=== PATIENT | female | born 1980 | race Caucasian/White ===

== ENCOUNTER 2020-08-14 11:06 | Emergency (ER) | payer OTHER, SELFPAY ==
[2020-08-14 11:55] VITALS: BP 116/77; PULSE 100; RESP 16; TEMP 36.9; O2SAT 98
--- NOTE | 2020-08-14 11:59 | ED.URI ---
HPI - URI/Sore Throat General Chief Complaint: Upper Respiratory Infection Stated Complaint: Sore throat Time Seen by Provider: 08/14/20 11:59 Source: patient and RN notes reviewed History of Present Illness HPI Narrative: Patient is a 40-year-old female who presents the urgent care with complaints of a sore throat. Patient states that she was recently on Augmentin for positive strep approximately 2 weeks ago. Patient states her symptoms started again on and she has been using Tylenol. Patient denies of any nausea or vomiting. No other acute complaints. No acute distress noted. Patient aware of the plan of care. Some parts of this dictation were generated by voice recognition software and may contain typographical and/or grammatical inaccuracies. Related Data Home Medications Medication Instructions Recorded Confirmed atorvastatin 10/28/19 fenofibrate mg 10/28/19 fluconazole 10/28/19 insulin glargine [Basaglar KwikPen unit SUBCUT 10/28/19 U-100 Insulin] metformin mg 10/28/19 quetiapine 10/28/19 citalopram mg 08/14/20 lamotrigine 08/14/20 lamotrigine 08/14/20 Allergies Allergy/AdvReac Type Severity Reaction Status Date / Time ibuprofen Allergy Unknown Nausea Verified 08/14/20 12:11 ketorolac Allergy Unknown Other Verified 08/14/20 12:11 PNEUMONIA VACCINE Allergy Unknown HIVES Uncoded 03/26/16 19:54 Review of Systems Review of Systems: Narrative: CONSTITUTIONAL: Denies fever, chills, or sweats. EYES: Denies visual changes, redness, or discharge. ENT: Reports of sore throat CARDIOVASCULAR: Denies chest pain, palpitations, or edema. RESPIRATORY: Denies cough or dyspnea. GASTROINTESTINAL: Denies abdominal pain, nausea, vomiting, or diarrhea. GENITOURINARY: Denies dysuria or hematuria. SKIN: Denies rash or itching. MUSCULOSKELETAL: Denies back pain, joint pain, or myalgia. NEUROLOGIC: Denies headache, numbness, or weakness. All other systems reviewed are negative, except as documented in HPI. PMFSH Comments At the time of my signature, I reviewed and agree with the nursing past medical, surgical, social, and family history. There is no relevant family history pertinent to the patient complaint. Exam Narrative: Exam Narrative: GENERAL: This is a well-nourished, well-developed patient, in no apparent distress. HEAD: normocephalic, atraumatic. EYES: PERRL. Sclera clear/white. Vision is grossly intact. EARS: External ears normal, auditory canals clear and without drainage, TMs normal without perforation. Hearing grossly intact. NOSE: External nose normal with no obvious nasal discharge, nares without redness, no rhinorrhea. THROAT: Mucous membranes moist, mild erythema noted to posterior pharynx with exudate noted to the left. Moderate postnasal drainage. NECK: Neck supple CARDIOVASCULAR: Regular rate and rhythm without murmurs, gallops, or rubs. RESPIRATORY: Clear to auscultation. Breath sounds equal bilaterally. No wheezes, rales, or rhonchi. SKIN: warm, intact with no suspicious lesions or rash, good texture and turgor. NEURO: awake, alert, and oriented to person, place and time. There were no obvious focal neurologic abnormalities. EXTREMITIES: No clubbing, cyanosis, or edema. Course Vital Signs Vital signs: Vital Signs Temperature 98.4 F 08/14/20 11:55 Pulse Rate 100 08/14/20 11:55 Respiratory Rate 16 08/14/20 11:55 Blood Pressure 116/77 08/14/20 11:55 Pulse Oximetry 98 08/14/20 11:55 Temperature 98.4 F 08/14/20 11:55 Pulse Rate 100 08/14/20 11:55 Respiratory Rate 16 08/14/20 11:55 Blood Pressure 116/77 08/14/20 11:55 Pulse Oximetry 98 08/14/20 11:55 Reviewed MDM - URI/Sore Throat MDM Narrative Medical decision making narrative: Reviewed lab results with the patient. Aware that strep swab was negative. Educated mother on culture we will call within 72 hours if culture is positive and antibiotics are necessary. Advised mother not to share a
== END 2020-08-14 12:28 | disposition home or self-care (01) ==
PROVIDERS: Emergency Provider Nurse Practitioner Family; PCP Physician Assistant
DX: J02.9 Acute pharyngitis, unspecified (principal); E78.00 Pure hypercholesterolemia, unspecified; I10 Essential (primary) hypertension; E11.9 Type 2 diabetes mellitus without complications
CPT/HCPCS: 87081; 87880; 99213; G0463

== ENCOUNTER 2022-01-29 15:50 | Emergency (ER) | payer OTHER, SELFPAY ==
--- NOTE | 2022-01-29 15:53 | ED.URI ---
HPI - URI/Sore Throat General Chief Complaint: Upper Respiratory Infection Stated Complaint: Sinus headache Time Seen by Provider: 01/29/22 16:20 Source: patient and RN notes reviewed Mode of arrival: ambulatory Limitations: no limitations History of Present Illness HPI Narrative: 41-year-old female presents with concern for 6-day history of nasal congestion, rhinorrhea, head congestion. Reports symptoms worsened yesterday. Reports mild symptoms for 1 week. She denies any [id number] dimension. She denies cough, fever, body aches, chills, sweats MD elicited complaint: rhinorrhea and nasal congestion Related Data Home Medications Medication Instructions Recorded Confirmed quetiapine 50 mg PO DAILY 10/28/19 01/29/22 citalopram 40 mg PO DAILY 08/14/20 01/29/22 lamotrigine 25 mg PO DAILY 08/14/20 01/29/22 lamotrigine 100 mg PO DAILY 08/14/20 01/29/22 Allergies Allergy/AdvReac Type Severity Reaction Status Date / Time ibuprofen Allergy Unknown Nausea Verified 01/29/22 16:28 ketorolac Allergy Unknown Other Verified 01/29/22 16:28 PNEUMONIA VACCINE Allergy Unknown HIVES Uncoded 01/29/22 16:28 Review of Systems Review of Systems: CONSTITUTIONAL: Denies malaise, chills, sweats, or fever. EYES: Denies visual changes, redness, or discharge. ENT: Reports rhinorrhea, congestion, sinus pain. Denies otalgia and sore throat. CARDIOVASCULAR: Denies chest pain, palpitations, or edema. RESPIRATORY: Denies cough. Denies dyspnea. GASTROINTESTINAL: Denies abdominal pain, nausea, vomiting, diarrhea SKIN: Denies rash or itching. MUSCULOSKELETAL: Denies myalgia. NEUROLOGIC: Reports headache. All systems reviewed & are unremarkable except as noted in HPI and below PMFSH Comments At time of signature, agree with nursing past medical, surgical, social and family history. There is no relevant family history pertinent to the presenting complaint Exam Narrative: GENERAL: Well-appearing, well-nourished, and in no acute distress. HEAD: Normocephalic EYES: PERRLA, conjunctivae clear ENT: Nares clear, turbinates edematous and erythematous, clear discharge. Mucous membranes moist. TM pearly cardenas with dull light reflex bilaterally; no tragal tenderness. Oropharynx not erythematous without lesions. Tonsils not enlarged and without exudate, no drooling, no hoarseness, no trismus, uvula midline. NECK: Supple. No lymphadenopathy CHEST: Clear to auscultation, breath sounds equal. No wheezing, rhonchi, rales, or stridor. No respiratory distress, speaks in full sentences. HEART: Regular rate and rhythm. No murmur heard. SKIN: Warm, dry, no rash. NEURO: Alert and oriented x3. PSYCH: Normal mood and affect Course Course Emergency Course: Patient is aware of diagnosis, understands and agrees to treatment plan. Anticipatory guidance given. Patient agrees to follow-up as directed and is aware of reasons to seek care at the emergency department. Portions of this record may have been created with voice recognition software Level of Care: Express Care Visit Vital Signs Vital signs: Vital Signs Temperature 97.5 F L 01/29/22 16:14 Pulse Rate 94 01/29/22 16:14 Respiratory Rate 16 01/29/22 16:14 Blood Pressure 119/83 01/29/22 16:14 Pulse Oximetry 98 01/29/22 16:14 Temperature 97.5 F L 01/29/22 16:14 Pulse Rate 94 01/29/22 16:14 Respiratory Rate 16 01/29/22 16:14 Blood Pressure 119/83 01/29/22 16:14 Pulse Oximetry 98 01/29/22 16:14 Reviewed. MDM - URI/Sore Throat MDM Narrative Medical decision making narrative: Differential diagnosis considered: Velez virus, strep pharyngitis, allergic rhinitis, upper respiratory tract infection, sinusitis, rhinosinusitis, nasopharyngitis. viral pharyngitis, otitis media, otitis externa, pneumonia, bronchitis, viral cough syndrome, viral syndrome, and influenza. Exam findings show no acute concerns or changes; patient is non-toxic appearing and is in no distress. Patient is appropriate
[2022-01-29 16:14] VITALS: BP 119/83; PULSE 94; RESP 16; TEMP 36.4; O2SAT 98
== END 2022-01-29 16:45 | disposition home or self-care (01) ==
PROVIDERS: Emergency Provider Nurse Practitioner; PCP Physician Assistant
DX: R51.9 Headache, unspecified (principal); J30.2 Other seasonal allergic rhinitis; E78.00 Pure hypercholesterolemia, unspecified; I10 Essential (primary) hypertension; J45.909 Unspecified asthma, uncomplicated; E11.9 Type 2 diabetes mellitus without complications; F31.9 Bipolar disorder, unspecified
CPT/HCPCS: 99213; G0463

== ENCOUNTER 2022-12-09 10:51 | Emergency (ER) | payer OTHER, SELFPAY ==
[2022-12-09 11:01] VITALS: BP 122/97; PULSE 99; RESP 16; TEMP 36.2; O2SAT 99
--- NOTE | 2022-12-09 11:17 | ED.GENADULT ---
HPI - General Adult General Chief complaint: Extremity Problem,Nontraumatic Stated complaint: infected thumbnail lt hand Source: patient Mode of arrival: ambulatory Limitations: no limitations History of Present Illness HPI narrative: Patient presents for evaluation of pain, swelling, redness to the left thumb for the last few weeks. She indicates that symptoms were initially a hangnail . She has been taking Tylenol for symptoms. Reports a moderate amount of pain in the affected area, without descriptive quality or numerical rating. She is left-hand dominant. She is diabetic but is not on medications as her blood sugars are well controlled at home. No precipitating injury. No loss of range of motion. No paresthesias. No additional complaints or concerns. Related Data Home Medications Medication Instructions Recorded Confirmed albuterol sulfate 90 mcg/actuation inhalation 12/09/22 aerosol inhaler lamotrigine 25 mg tablet mg 12/09/22 12/09/22 Allergies Allergy/AdvReac Type Severity Reaction Status Date / Time ibuprofen Allergy Unknown Nausea Verified 12/09/22 11:15 ketorolac Allergy Unknown Other Verified 12/09/22 11:15 PNEUMONIA VACCINE Allergy Unknown HIVES Uncoded 12/09/22 11:15 Review of Systems Review of Systems: CONSTITUTIONAL: Denies fever, chills, or sweats. EYES: Denies visual changes, redness, or discharge. ENT: Denies rhinorrhea, congestion, sore throat, or otalgia. CARDIOVASCULAR: Denies chest pain, palpitations, or edema. RESPIRATORY: Denies cough or dyspnea. GASTROINTESTINAL: Denies abdominal pain, nausea, vomiting, or diarrhea. GENITOURINARY: Denies dysuria or hematuria. SKIN: Reports redness and swelling to the left thumb. MUSCULOSKELETAL: Reports left thumb pain. NEUROLOGIC: Denies headache, numbness, dizziness, or weakness. PSYCHIATRIC: Denies anxiety or depression. [facility] Past Medical History Medical History Bipolar 1 disorder Diabetes Surgical History Surgical History History of cholecystectomy Family History Family History Father Family history non-contributory Social History Social History Substance use: never Gender identity (if verbalized by the patient): Female Spiritual care concerns: No Exam Narrative: GENERAL: Well-appearing, well-nourished, and in no acute distress. HEAD: Normocephalic, atraumatic. EYES: PERRLA and EOMI. ENT: Nares clear, no rhinorrhea or epistaxis. Mucous membranes moist. Oropharynx without tonsillar hypertrophy exudate or other lesions. Bilateral TMs pearly cardenas nonbulging NECK: Supple. No adenopathy or masses. No carotid bruits or JVD CHEST: Clear to auscultation. No respiratory distress. No wheezes rales or rhonchi HEART: Regular rate and rhythm. No murmur heard. Normal peripheral pulses. ABDOMEN: Soft, nontender, nondistended, normal active bowel sounds. EXTREMITIES: there is swelling noted to the skin surrounding the nail plate of the left thumb. Normal range of motion. SKIN: there is erythema noted to the distal phalanx of left thumb NEURO: No focal deficits. Alert and oriented x3. PSYCH: Normal mood and affect. Course Course Emergency Course: This is a 42-year-old female who presented for evaluation of swelling, redness, pain in left thumb after hangnail . She has evidence of paronychia. Replace her on Bactrim and Keflex. Blood sugars at home well controlled. Advise she should monitor that. Bauw-ntj-[id number] agents for symptom management. Follow up with primary provider. Go to the ER for systemic signs of infection. Patient in agreement with plan of care. Level of Care: Express Care Visit Vital Signs Vital signs: Vital Signs Temperature 36.2 C L 12/09/22 11:01 Puls
== END 2022-12-09 11:18 | disposition home or self-care (01) ==
PROVIDERS: Emergency Provider Nurse Practitioner; PCP Physician Assistant
DX: L03.012 Cellulitis of left finger (principal); E11.9 Type 2 diabetes mellitus without complications; F31.9 Bipolar disorder, unspecified
CPT/HCPCS: 99213; G0463

== ENCOUNTER 2023-05-28 17:07 | Emergency (ER) | payer OTHER, SELFPAY ==
--- NOTE | 2023-05-28 17:09 | ED.URI ---
HPI - URI/Sore Throat General Chief Complaint: Upper Respiratory Infection Stated Complaint: SORE THROAT Time Seen by Provider: 05/28/23 17:08 Source: patient Mode of arrival: ambulatory Limitations: no limitations History of Present Illness HPI Narrative: Evelyn is a 42-year-old female patient presenting to the clinic today with complaints of fever, chills, and sore throat x4 days. She reports family members have also had strep at the house. MD elicited complaint: fever, sore throat and other (Chills) Related Data Allergies Allergy/AdvReac Type Severity Reaction Status Date / Time ibuprofen Allergy Unknown Nausea Verified 05/28/23 17:14 ketorolac Allergy Unknown Other Verified 05/28/23 17:14 PNEUMONIA VACCINE Allergy Unknown HIVES Uncoded 05/28/23 17:14 Review of Systems Review of Systems: Pertinent positives per HPI. Patient denies any fever, chills, rash, headache, visual changes, dizziness, cough, shortness of breath, chest pain, palpitations, nausea, vomiting, diarrhea, constipation, abdominal pain, or any urinary issues. PMFSH Past Medical History Medical History Bipolar 1 disorder Diabetes Surgical History Surgical History History of cholecystectomy Family History Family History Father Family history non-contributory Social History Social History Substance use: never Gender identity (if verbalized by the patient): Female Spiritual care concerns: No Comments At the time of my signature, I reviewed and agree with the nursing past medical, surgical, social, and family history. There is no relevant family history pertinent to the patient complaint. Exam Narrative: General: Well-developed, well nourished, in no apparent distress Head: Normocephalic, atraumatic Eyes: Pupils equally round and reactive to light bilaterally, EOM intact, sclera and conjunctive clear, no discharge, lids normal Ears: TMs intact and clear, ear canals clear, no drainage, grossly hearing normal. Nose: Nares patent, no discharge, no inflammation, no sinus tenderness. Mouth: Oral pharynx red without lesions or masses, good dentition, MMM. Neck: Supple, trachea midline, mild enlargement of anterior cervical nodes, no thyroid masses or goiter palpable. Cardio: Regular rate and rhythm, s1 and s2 normal, no murmur appreciated. Resp: Clear to auscultation bilaterally, no rhonchi, rales, wheezing or rubs Course Course Emergency Course: Portions of this record may have been created with voice recognition software. Level of Care: Express Care Visit Vital Signs Vital signs: Vital signs reviewed MDM - URI/Sore Throat MDM Narrative Medical decision making narrative: At the time of visit patient is resting comfortably on the exam table. Strep screen was obtained and was positive in the clinic today. Prescription for amoxicillin was sent to the pharmacy. Supportive measures were discussed with the patient and she voiced understanding of discharge instructions and agrees to treatment plan. Differential Diagnosis Differential diagnosis: Likely upper respiratory infection, otitis media, sinusitis, viral infection, bronchitis, influenza, pharyngitis and other Discharge Plan Discharge Clinical Impression: Acute streptococcal pharyngitis Patient Disposition: Home, Self-Care Condition: Stable Instructions: Antibiotic Form, Strep Throat (ED) Additional Instructions: Strep screen was positive in the clinic today. Take amoxicillin as prescribed Take prescription medications only as prescribed Increase fluids and stay well hydrated Tylenol/motrin for pain/fever Flonase and OTC antihistamines as directed Vicks vapor rub to open sinuses Sinus rinses for conge
[2023-05-28 17:19] VITALS: BP 119/87; PULSE 94; RESP 16; TEMP 36.2; O2SAT 98
== END 2023-05-28 17:26 | disposition home or self-care (01) ==
PROVIDERS: Emergency Provider Nurse Practitioner Family; PCP Physician Assistant
DX: J02.0 Streptococcal pharyngitis (principal)
CPT/HCPCS: 87880; 99213; G0463

== ENCOUNTER 2023-08-12 10:26 | Emergency (ER) | payer OTHER, SELFPAY ==
[2023-08-12 10:31] VITALS: BP 114/79; PULSE 88; RESP 16; TEMP 37; O2SAT 99
--- NOTE | 2023-08-12 10:34 | ED.URI ---
HPI - URI/Sore Throat General Chief Complaint: Upper Respiratory Infection Stated Complaint: Strep symptoms Time Seen by Provider: 08/12/23 10:30 Source: patient Mode of arrival: ambulatory Limitations: no limitations History of Present Illness HPI Narrative: Patient is a 43-year-old female who presents with sore throat. Patient states all of her children are currently under treatment for strep. Patient has also had a fever since Saturday. Patient has tried [id number] treatment with no relief. Denies any ear pain, congestion, cough, nausea, vomiting, diarrhea. Related Data Allergies Allergy/AdvReac Type Severity Reaction Status Date / Time ibuprofen Allergy Unknown Nausea Verified 08/12/23 10:33 ketorolac Allergy Unknown Other Verified 08/12/23 10:33 PNEUMONIA VACCINE Allergy Unknown HIVES Uncoded 08/12/23 10:33 Review of Systems Review of Systems: All systems reviewed & are unremarkable except as noted in HPI and below Constitutional: Constitutional: Denies body ache(s), Reports fever(s), Denies headache(s), Denies malaise and Denies weakness Eyes: Eyes: Denies loss of vision ENT: Denies otalgia, Denies headache(s), Denies nasal congestion, Denies sinus pain and Reports sore throat Cardiovascular: Cardiovascular: Denies chest pain, Denies irregular heart rhythm and Denies dyspnea Respiratory: Respiratory: Denies cough and Denies dyspnea Gastrointestinal: Gastrointestinal: Denies abdominal pain, Denies melena, Denies hematochezia, Denies diarrhea, Denies nausea and Denies vomiting Musculoskeletal: Musculoskeletal: Denies back pain, Denies myalgias and Denies arthralgias Integumentary/Breasts: Skin/Breast: Denies pruritus and Denies rash Neurologic: Denies headache(s), Denies loss of vision and Denies weakness Psychiatric: Psychiatric: Reports no additional psychiatric complaints PMFSH Past Medical History Medical History Bipolar 1 disorder Diabetes Surgical History Surgical History History of cholecystectomy Family History Family History Father Family history non-contributory Social History Social History Substance use: never Gender identity (if verbalized by the patient): Female Spiritual care concerns: No Comments At time of signature, agree with nursing past medical, surgical, social and family history. There is no relevant family history pertinent to the presenting complaint. Exam Const: General: cooperative, healthy appearing, comfortable, no acute distress and well nourished Nutritional Appearance: well nourished Orientation/consciousness: patient oriented x3 Limitations: no limitations HENMT: Head: normal to inspection, normocephalic and atraumatic Ears: hearing grossly normal bilaterally, external ears normal, TM's normal bilaterally and EAC's normal Face/Nose/Sinus: Normal external nose present, Normal nares present, Normal nasal mucous membranes and turbinates present, Normal septum present, normal facial exam, sinuses nontender and face symmetric Face and sinus: normal facial exam, sinuses nontender and face symmetric Mouth: Yes Normal oral and palatal mucosa present, Yes lip normal and Yes moist mucous membranes Teeth and gingiva: dentition normal Throat: uvula midline, abnormal tonsil bilateral erythema, hypertrophy 2+ and pitting, posterior oropharynx abnormal edema, erythema and exudates and postnasal drainage Eyes: General: appearance normal, both eyes and all related structures Alignment and Position: alignment normal and position normal Periorbital: periorbital findings normal Eyelids: eyelids normal Pupils: Equal, round and reactive pupils present Neck: Neck: normal visual inspection, full ROM, no lymphadenopathy and supple Chest: Chest palpati
== END 2023-08-12 10:47 | disposition home or self-care (01) ==
PROVIDERS: Emergency Provider Nurse Practitioner Family
DX: J02.9 Acute pharyngitis, unspecified (principal); E11.9 Type 2 diabetes mellitus without complications
CPT/HCPCS: 99213; G0463

== ENCOUNTER 2025-10-01 09:49 | Emergency (ER) | payer MEDICAID, SELFPAY ==
[2025-10-01 10:04] VITALS: BP 135/90; PULSE 98; RESP 18; TEMP 36.6; O2SAT 96
--- NOTE | 2025-10-01 11:34 | ED_ITS ---
HPI - Dental/Oral General Chief complaint: Dental/Oral Stated complaint: Abscess in mouth Time Seen by Provider: 10/01/25 10:10 Source: patient and RN notes reviewed Mode of arrival: ambulatory Limitations: no limitations History of Present Illness HPI Narrative: 45-year-old female presents [facility] complaining dental pain for approximately a week. Patient said today she woke up and was much worse. Patient reports pain to the right lower gum near the 2nd molar. Patient has a scheduled dentist appointment next Saturday she says it is a new patient appointment so they would not give her any antibiotics. Patient denies any difficulty clearing secretions, dysphagia, trismus, swelling of the tongue, neck swelling, difficulty breathing, fevers, eczema chills, any other symptoms. Patient reports she has poor tooth decay. Related Data Allergies Allergy/AdvReac Type Severity Reaction Status Date / Time ibuprofen Allergy Unknown Nausea Verified 10/01/25 10:01 ketorolac Allergy Unknown Other Verified 10/01/25 10:01 PNEUMONIA VACCINE Allergy Unknown HIVES Uncoded 08/12/23 10:33 Review of Systems Review of Systems: CONSTITUTIONAL: Denies fever, chills, or sweats. EYES: Denies visual changes, redness, or discharge. ENT: Denies rhinorrhea, congestion, sore throat, trismus, dysphagia, difficulty clearing secretions, drooling, or otalgia. MOUTH: Positive for tooth pain. CARDIOVASCULAR: Denies chest pain, palpitations, or edema. RESPIRATORY: Denies cough or dyspnea. GASTROINTESTINAL: Denies abdominal pain, nausea, vomiting, or diarrhea. GENITOURINARY: Denies dysuria or hematuria. SKIN: Denies rash or itching. MUSCULOSKELETAL: Denies back pain, joint pain, or myalgia. NEUROLOGIC: Denies headache, numbness, or weakness. PSYCHIATRIC: Denies anxiety or depression. All other systems reviewed are negative, except as documented in HPI. [facility] Past Medical History Medical History Bipolar 1 disorder Diabetes Surgical History Surgical History History of cholecystectomy Family History Family History Father Family history non-contributory Social History Social History Substance use: never Gender identity (if verbalized by the patient): Female Spiritual care concerns: No Comments At the time of my signature, I reviewed and agree with the nursing past medical, surgical, social, and family history. There is no relevant family history pertinent to the patient complaint. Exam Narrative: GENERAL: This is a well-nourished, well-developed adult, in no apparent distre ss. They are non ill-appearing, nontoxic appearing. HEAD: normocephalic, atraumatic. EYES: Sclera clear/white. Conjunctiva normal. Vision is grossly intact. Extraocular movements intact EARS: External ears normal, Hearing grossly intact. NOSE: External nose normal THROAT: Mucous membranes moist, posterior pharynx clear, without erythema or swelling. Uvula midline. OROPHARYNX: Gross tooth decay present. No gingivitis. Right lower 2nd molar with gross tooth decay and surrounding erythema and swelling. No area of fluctuance, no exudate. Tongue normal. No swelling of the tongue. no 2nd tongue sign, no trismus. No redness, swelling or pain under the neck NECK: Neck supple, non-tender without lymphadenopathy, swelling, masses or thyromegaly. CARDIOVASCULAR: Regular rate and rhythm without murmurs, gallops, or rubs. RESPIRATORY: Clear to auscultation. Breath sounds equal bilaterally. No wheezes, rales, or rhonchi. SKIN: warm, Dry, intact with no suspicious lesions or rash, good texture and turgor. NEURO: awake, alert, and oriented to person, place and time. There were no obvious focal neurologic abnormalities. EXTREMITIES: No joint tenderness, effusion, or edema noted. BACK: Nontender without deformity. Course Course Emergency Course: Portions of this record may have been created with voice recognition software Level of Care: Express Care Visit Vital Signs Vital signs: Vital Signs Temperature 98 F 10/01/25 10:04 Pulse Rate 98 10/01/25 10:04 Respiratory Rate 18 10/01/25 10:04 Blood Pressure 135/90 10/01/25 10:04 Pulse Oximetry 96 10/01/25 10:04 Oxygen Delivery Room Air 10/01/25 10:04 Temperature 98 F 10/01/25 10:04 Pulse Rate 98 10/01/25 10:04 Respiratory Rate 18 10/01/25 10:04 Blood Pressure 135/90 10/01/25 10:04 Pulse Oximetry 96 10/01/25 10:04 Oxygen Delivery Room Air 10/01/25 10:04 Reviewed MDM - Dental/Oral MDM Narrative Medical decision making narrative: Appears patient has dental infection. Will treat with Augmentin. No Evidence of Rory's angina. No trismus, noted difficulty clearing secretions, no pain or swelling under the and neck, no tongue swelling, negative 2nd tongue sign. Will also send her home with viscous lidocaine for pain. Discussed physical exam findings. Advised supportive measures and signs/symptoms to go to the ER. Pt is appropriate for outpt treatment and f/u. Differential Diagnosis Differential diagnosis: Likely gingival abscess, dental caries, toothache and dental abscess Critical Care Time Critical Care Time Critical Care Time: No Discharge Plan Discharge Clinical Impression: Dental infection Patient Disposition: Home Condition: Stable Instructions: Antibiotic Form, Dental Abscess (ED) Additional Instructions: Take the antibiotics as directed. You may take up to 1000 mg Tylenol every 6-8 hours. Do not exceed 1000 mg per dose, do exceed more than 4000 mg of Tylenol in a day. You may use viscous lidocaine as needed for pain in your mouth. Use a Q-tip and apply directly to the affected area. [place] your teeth and floss at least 2 times a day. You may use mouthwash after each brushing as well. Follow-up with dentist next week. If you developed worsening swelling, fevers, difficulty swallowing or breathing, difficulty opening your jaw, neck swelling, swelling under the tongue, or any other concerns please go to the ER immediately. Patient Language: Divehi Prescriptions: New amoxicillin-pot clavulanate 875-125 mg tablet 1 tablet PO Q12H 7 Days Qty: 14 0RF lidocaine HCl [Lidocaine Viscous] 2 % solution 1 applic mucous membrane TID PRN (Reason: pain) Qty: 100 0RF Rx Instructions: apply to affected tooth No Action cephalexin 500 mg capsule 500 mg PO BID 10 Days Qty: 20 0RF Follow-up/Referrals: PHYSICIAN,MANUFACTURING DEVELOPMENT ENGINEER [Primary Care Provider, Internal Medicine] Time of Disposition: 10:23
== END 2025-10-01 10:29 | disposition home or self-care (01) ==
DX: K04.7 Periapical abscess without sinus (principal); E11.9 Type 2 diabetes mellitus without complications
CPT/HCPCS: 99213; G0463